=== PATIENT | female | born 1950 | race Caucasian/White ===

== ENCOUNTER → 2020-12-26 | Outpatient (CLI) | payer OTHER ==
--- NOTE | 2020-12-28 13:08 | PATH ---
[facility] [place] [address] PATHOLOGY RPT PROCEDURE Name: PATRICIA LOPEZ Room #: REG [facility]#: [id number] Admission: 12/26/20 Date of : 48 Discharge: Report #: [id number] Path Case #: [id number] Note [facility] Accession Number: [id number] TESTS RESULT FLAG UNITS REF RANGE LAB Clinician Provided Cytology Information No. of containers..01 Other (Miscellaneous) Source: RIGHT THYROID NODULE DIAGNOSIS: RIGHT THYROID NODULE NEGATIVE FOR MALIGNANT CELLS. B[place]ES[place] CATEGORY II. SPECIMEN CONSISTS OF BENIGN FOLLICULAR CELLS, HEMOSIDERIN-LADEN MACROPHAGES, COLLOID, AND LYMPHOCYTES. THIS PATTERN IS CONSISTENT WITH A BENIGN FOLLICULAR NODULE. COLLOID IS PRESENT. RED BLOOD CELLS ARE PRESENT. THIS INTERPRETATION INCLUDES EVALUATION OF A CELL BLOCK. Comment: The presence of lymphocytes raises the possibility of chronic thyroiditis. The lymphocytes show focal apoptosis and degenerative changes. Pathologist ICD10: 02 E04.1 Signed out by: Yvonne Hyatt MD, Pathologist NPI- [id number] Performed by: Nas Galindo, Chief Lending Officer ([facility]) Gross description: 01 30ML, CLEAR SLIGHTLY, BLOOD-TING /LCS 12/27/2020 1832 Local FLAG LEGEND: L-Low Normal,H-High Normal,LL-Alert Low,HH-Alert High <-Panic Low,>-Panic High,A-Abnormal,AA-Critical Abnormal Performed at: 01 [facility] [address] [place] [address] [address] [place] [address] Armond Munoz MD, [address] [address] Terese Perkins MD, Specimen Comment: A courtesy copy of this report has been sent to [phone] Specimen Comment: Report sent to Performed at: [address] [address] PATHOLOGY RPT PROCEDURE Name: PATRICIA LOPEZ Room #: REG [facility]#: [id number] Admission: 12/26/20 Date of : 48 Discharge: Report #: [id number] Path Case #: [id number] [facility] [address], [place], [place] [id number] MD Armond Munoz MD Phone: [phone]
== END | disposition home or self-care (01) ==
LOC: ULTRA 08:46
PROVIDERS: ATTEND Otolaryngology Plastic Surgery within the Head & Neck
DX: E04.1 Nontoxic single thyroid nodule (principal)